=== PATIENT | female | born 1965 | race Caucasian/White ===

== ENCOUNTER 2019-11-05 20:39 | Emergency (ER) | payer OTHER, SELFPAY ==
--- NOTE | ~2019-11-05 | XR_ITS ---
EXAMINATION: XR chest 2V DATE: 11/05/2019 21:45 INDICATION: Shortness of breath TECHNIQUE: PA and lateral views of the chest are obtained. COMPARISON: 11/06/2018 FINDINGS: The lungs are hyperinflated but free of acute opacities. There is no pleural effusion or pn eumothorax. The cardiomediastinal silhouette is normal. There is mild thoracic spondylosis. Surgical clips in the right upper quadrant are likely from prior cholecystectomy. IMPRESSION: 1. Hyperinflation without acute cardiopulmonary abnormality. Reviewed, dictated and finalized at location A. [facility]
[2019-11-05 21:13] VITALS: BP 108/66; PULSE 84; RESP 14; TEMP 36.6; O2SAT 97
--- NOTE | 2019-11-05 21:49 | ED.SOB ---
HPI - SOB/Dyspnea General Chief Complaint: Shortness of Breath/Dyspnea Stated Complaint: light headed, chest pains Time Seen by Provider: 11/05/19 21:00 Source: patient and family Mode of arrival: ambulatory Limitations: no limitations History of Present Illness HPI Narrative: Sheela is a very pleasant 54-year-old female patient. she presents ambulatory to the emergency room with her . She states that she has had cough and shortness of breath for several months. She has history of COPD. She is a heavy smoker. She smokes 1 pack of cigarettes a day. She has been smoking since the age of 8 years. She sees a shipping room supervisor and actually saw him 2 weeks ago. Some changes were made in her medications. She coughs hard at times and that makes her ribs and chest hurt. She has had no fever. There is no history of hypertension, mi, CVA, diabetes mellitus. MD elicited complaint: shortness of breath, cough and anxiety ( Ribs hurt with coughing) Pertinent past history: COPD Onset (ago): month(s) ( several months, worst in the past 3-4 days) Timing: intermittent Severity: moderate Exacerbating factors: other ( smoking) Relieving factors: oxygen, rest and bronchodilators Known history of: COPD Associated symptoms: pain with inspiration and other ( coughing and deep breathing makes her ribs hurt) Treatment prior to arrival: bronchodilator Related Data Home oxygen amount: none Home Medications Medication Instructions Recorded Confirmed albuterol sulfate 2 puff INHALATION Q4-5H PRN 11/05/19 11/05/19 albuterol sulfate 2.5 mg INHALATION Q4-6H PRN 11/05/19 11/05/19 alprazolam 2 mg PO TID PRN 11/05/19 11/05/19 budesonide-formoterol [Symbicort] 1 puff INHALATION DAILY 11/05/19 11/05/19 citalopram 40 mg PO DAILY 11/05/19 11/05/19 cyclobenzaprine 10 mg PO TID PRN 11/05/19 11/05/19 fluticasone propion-salmeterol 1 puff INHALATION DAILY 11/05/19 11/05/19 hydrocodone-acetaminophen 1 tablet PO Q4-6H PRN 11/05/19 11/05/19 mirtazapine 15 mg PO HS 11/05/19 11/05/19 nicotine 1 patch TOPICAL DAILY 11/05/19 11/05/19 umeclidinium [Incruse Ellipta] 1 inh INHALATION DAILY 11/05/19 11/05/19 Allergies Allergy/AdvReac Type Severity Reaction Status Date / Time aspirin AdvReac Unknown Unknown Verified 11/05/19 22:19 Corticosteroids AdvReac Unknown Unknown Verified 11/05/19 22:19 (Glucocorticoids) diphenhydramine AdvReac Unknown Unknown Verified 11/05/19 22:19 meperidine AdvReac Unknown Unknown Verified 11/05/19 22:19 NSAIDS (Non-Steroidal AdvReac Unknown Unknown Verified 11/05/19 22:19 Anti-Inflamma prednisone AdvReac Unknown Unknown Verified 11/05/19 22:19 Sulfonamides AdvReac Intermediate Unknown Uncoded 11/05/19 22:19 Review of Systems Review of Systems: All systems reviewed & are unremarkable except as noted in HPI and below Constitutional: Constitutional: Reports as per HPI, Reports no additional constitutional complaints, Denies chills and Denies fever(s) Eyes: Eyes: Reports as per HPI, Reports no additional eye complaints and Denies change in vision ENT: Denies dysphagia, Denies dizziness, Denies nasal congestion and Denies sore throat Cardiovascular: Cardiovascular: Reports as per HPI, Reports no additional cardiovascular complaints and Denies radiating jaw, neck or arm pain Respiratory: Respiratory: Reports as per HPI, Reports cough and Reports dyspnea Gastrointestinal: Gastrointestinal: Reports as per HPI, Reports no additional gastrointestinal complaints, Denies abdominal pain and Denies nausea Genitourinary: Genitourinary: Reports no additional female genitourinary complaints, Denies hematuria and Denies dysuria Musculoskeletal: Musculoskeletal: Reports no additional musculoskeletal complaints and Denies back pain Integumentary/Breasts: Skin/Breast: Reports system reviewed and no additional complaints, except as docu, Denies erythema and Denies rash Neurologic: Reports system reviewed and no additional complaints, except as
[2019-11-05 21:55] LABS: Basophils Absolute Auto 0.09 K/mm3 (0.00-0.10); Basophils Percent Auto 0.6 % (0.0-1.0); Eosinophils Absolute Auto 1.13 K/mm3 (0.02-0.50); Eosinophils Percent Auto 7.8 % (1.0-6.0); Hematocrit 44.2 % (35.0-49.0); Hemoglobin 14.8 g/dL (12.0-15.0); Immature Granulocyte Absolute 0.41 K/mm3 (0.00-0.00); Immature Granulocyte Percent A 2.8 % (0.0-0.0); Lymphocytes Absolute Auto 2.87 K/mm3 (1.10-4.50); Lymphocytes Percent Auto 19.8 % (18.0-42.0); Mean Corpuscular HGB Conc 33.5 g/dL (32.0-36.0); Mean Corpuscular Hemoglobin 31.1 pg (27.0-31.0); Mean Corpuscular Volume 92.9 fL (78.0-102.0); Monocytes Absolute Auto 1.09 K/mm3 (0.10-0.90); Monocytes Percent Auto 7.5 % (2.0-11.0); Neutrophils Absolute Auto 8.9 K/mm3 (1.7-7.2); Neutrophils Percent Auto 61.5 % (50.0-70.0); Platelet Count Result 350 K/mm3 (150-420); Red Blood Count 4.76 M/mm3 (4.20-5.40); Red Cell Distribution Width 14.6 % (11.6-14.4); White Blood Count 14.5 K/mm3 (4.8-10.8)
[2019-11-05 22:12] LABS: Alanine Aminotransferase 22 U/L (14-59); Albumin Level 3.5 g/dL (3.4-5.0); Alkaline Phosphatase 163 U/L (46-116); Anion Gap 14.1 mmol/L (7-16); Aspartate Amino Transferase 15 U/L (15-37); Bilirubin,Total 0.4 mg/dL (0.00-1.00); Blood Urea Nitrogen 11 mg/dL (7-18); Calcium 9.9 mg/dL (8.5-10.1); Carbon Dioxide 26 mmol/L (21-32); Chloride 102 mmol/L (98-108); Estimated CRCL calculation 46 ml/min; Estimated Glomerular Filt Rate 58; Glucose 91 mg/dL (70-99); Osmolality Calculated 285 mOsm/kg (285-295); Potassium 4.1 mmol/L (3.5-5.1); Sodium 138 mmol/L (136-145); Total Protein 7.5 g/dL (6.4-8.2)
--- NOTE | 2019-11-05 22:19 | PC.NURSE ---
PT STATES MULTIPLE TIMES THAT SHE HAS NO KNOWN DRUG ALLERGIES AND HAS NO ALLERGIC REACTION TO STERIODS OF ANY KIND. ALLERGY LIST CHANGED TO ADVERSE REACTIONS INSTEAD OF ALLERGIES. UNKNOWN WHERE THIS ALLERGY LIST HAS COME FROM. ERP CONFIRMED WITH PATIENT THAT SHE HAS NO ALLERGIES
[2019-11-05] MEDS: methylPREDNISolone SOD SUCC 125 MG VIAL 60 MG IM (22:49)
[2019-11-05] MEDS: LIDOCAINE HCL 1% LOCAL INJ 20 ML VIAL (22:50)
[2019-11-05] MEDS: cefTRIAXone 1 GM VIAL IM (22:50)
[2019-11-05] MEDS: IPRATROPIUM 0.5 MG/ALBUTEROL SULFATE 2.5 MG AMPUL.NEB 3 ML INHALATION (22:50)
[2019-11-05 23:22] VITALS: PULSE 81; RESP 14; O2SAT 100
== END 2019-11-05 23:22 | disposition home or self-care (01) ==
PROVIDERS: Emergency Provider Surgery
DX: J44.1 Chronic obstructive pulmonary disease with (acute) exacerbation (principal); F17.200 Nicotine dependence, unspecified, uncomplicated
CPT/HCPCS: 36415; 71046; 80053; 85025; 87040; 96372; 99283; 99284; J0696; J2930

== ENCOUNTER 2020-05-20 13:35 | Observation (INO) | payer OTHER, SELFPAY ==
--- NOTE | ~2020-05-20 | XR_ITS ---
EXAMINATION: XR chest 2V DATE: 05/20/2020 14:10 INDICATION: Chest pain. TECHNIQUE: Frontal and lateral views of the chest were obtained on 3 radiographs. COMPARISON: Chest 2 views 11/05/2019 FINDINGS: The lungs are hyperexpanded with lucencies, consistent with emphysema. There is mild scarri ng at the lung apices. No pleural effusion or pneumothorax. The heart size is normal. IMPRESSION: 1. Emphysema. 2. Mild scarring at the lung apices. Reviewed, dictated and finalized at location B.
--- NOTE | 2020-05-20 13:46 | ED.CHESTPAIN ---
HPI - Chest Pain General Chief Complaint: Chest Pain Stated Complaint: chest pain/ bruse to the touch/ swollen,timgling Time Seen by Provider: 05/20/20 13:47 Source: patient Mode of arrival: ambulatory Limitations: no limitations History of Present Illness HPI narrative: 55-year-old woman comes in today complaining of 1 week of intermittent chest pain sometimes lasting more than day and intermittent shortness of breath. She also states that she has felt feverish, had nausea and vomiting, and noticed that she has bruising even with minor skin contact. She states that she had some itching on her right lateral leg and after she scratched did notice a large bruise. She denies any sick exposures, cough, rhinorrhea, sore throat, abdominal pain, hematuria or dysuria. Patient states that she has been taking frequent doses of Tylenol for her symptoms. MD complaint: chest pain Pertinent past history: other ( COPD) Onset (ago): week(s) (1) Timing of current episode: episodic Prior episodes: No Onset: during rest Pain location: substernal Pain radiation: none Severity: moderate Quality: tightness Relieving factors: nothing Exacerbating factors: nothing Associated symptoms: nausea, vomiting, diaphoresis, dyspnea and palpitations Treatment prior to arrival: none Related Data Home Medications Medication Instructions Recorded Confirmed albuterol sulfate 2 puff INHALATION Q4-5H PRN 11/05/19 05/20/20 budesonide-formoterol [Symbicort] 1 puff INHALATION DAILY 11/05/19 05/20/20 umeclidinium [Incruse Ellipta] 1 inh INHALATION DAILY 11/05/19 05/20/20 omeprazole 40 mg capsule,delayed 40 mg PO DAILY cap 04/25/20 05/20/20 release Allergies Allergy/AdvReac Type Severity Reaction Status Date / Time meperidine [From Demerol] Allergy Severe Unknown Verified 04/25/20 13:47 Sulfonamides AdvReac Intermediate Unknown Uncoded 11/05/19 22:19 Review of Systems Constitutional: Constitutional: Reports chills, Reports fatigue, Reports fever(s) and Reports weakness Eyes: Eyes: Denies change in vision and Denies photophobia ENT: Denies dysphagia, Denies nasal congestion and Denies sore throat Cardiovascular: Cardiovascular: Reports chest pain and Denies radiating jaw, neck or arm pain Respiratory: Respiratory: Denies cough, Reports dyspnea and Denies wheezing Gastrointestinal: Gastrointestinal: Denies abdominal pain, Reports diarrhea, Reports nausea and Denies vomiting Genitourinary: Genitourinary: Denies hematuria, Denies nocturia and Denies dysuria Musculoskeletal: Musculoskeletal: Denies back pain, Denies arthralgias and Denies joint swelling Integumentary/Breasts: Skin/Breast: Denies pruritus, Denies erythema and Denies rash Neurologic: Denies vertigo, Denies dizziness and Denies syncope Hematologic/Lymphatic: Hematologic/Lymphatic: Denies easy bleeding and Denies easy bruising Allergic/Immunologic: Allergic/Immunologic: Denies lip swelling, Denies throat swelling and Denies tongue swelling PMFSH Social History Social History Smoking packs per day: 2 Smoking cigarettes per day: 40.0 Years smoked: 45 Smoking pack-years: 90.00 Smoking status: Current every day smoker Tobacco type: cigarettes Additional smoking assessment comments: Patient reports she has descreased smoking to 4-5 cigarettes a day. Alcohol intake: never Substance use: current Substance use type: marijuana Other substance usage details: Medical [facility] Gender identity (if verbalized by the patient): Female Sexual Orientation (if Verbalized by the Patient): Straight or Heterosexual Spiritual care concerns: No Course Vital Signs Vital signs: Vital Signs Temperature 36.8 C 05/20/20 13:48 Pulse Rate 78 05/20/20 13:48 Respiratory Rate 20 05/20/20 13:48 Blood Pressure 153/89 H 05/20/20 13:48 Pulse Oximetry 98 05/20/20 13:48 Temperature 36.7 C 05/21/20 00:00 Pul
[2020-05-20 13:48] VITALS: BP 153/89; PULSE 78; RESP 20; TEMP 36.8; O2SAT 98
--- NOTE | 2020-05-20 13:48 | ECG_ITS ---
Measurements Intervals [place] Rate: 86 P: 76 [place]: 121 QRS: 72 QRSD: 85 T: 85 QT: 349 QTc: 420 Interpretive Statements SINUS RHYTHM BORDERLINE T WAVE ABNORMALITY- ANT/HIGH LAT LEADS BASELINE ARTIFACT- I, II, III, AVR, AVL, AVF, V6 BORDERLINE ECG Electronically Signed On 05-20-2020 14:03:11 CDT by Eleazar Rubio D.O.
[2020-05-20 14:28] LABS: Basophils Absolute Auto 0.06 K/mm3 (0.00-0.10); Basophils Percent Auto 0.7 % (0.0-1.0); Eosinophils Absolute Auto 0.48 K/mm3 (0.02-0.50); Eosinophils Percent Auto 5.8 % (1.0-6.0); Hematocrit 41.7 % (35.0-49.0); Hemoglobin 13.8 g/dL (12.0-15.0); Immature Granulocyte Absolute 0.04 K/mm3 (0.00-0.00); Immature Granulocyte Percent A 0.5 % (0.0-0.0); Lymphocytes Absolute Auto 2.35 K/mm3 (1.10-4.50); Lymphocytes Percent Auto 28.3 % (18.0-42.0); Mean Corpuscular HGB Conc 33.1 g/dL (32.0-36.0); Mean Corpuscular Hemoglobin 30.3 pg (27.0-31.0); Mean Corpuscular Volume 91.4 fL (78.0-102.0); Mean Platelet Volume 9.9 fl (9.2-11.8); Monocytes Absolute Auto 0.66 K/mm3 (0.10-0.90); Monocytes Percent Auto 7.9 % (2.0-11.0); Neutrophils Absolute Auto 4.7 K/mm3 (1.7-7.2); Neutrophils Percent Auto 56.8 % (50.0-70.0); Platelet Count Result 350 K/mm3 (150-420); Red Blood Count 4.56 M/mm3 (4.20-5.40); Red Cell Distribution Width 15.9 % (11.6-14.4); White Blood Count 8.3 K/mm3 (4.8-10.8)
[2020-05-20 14:42] LABS: Partial Thromboplastin Time 25.4 SEC (22.3-31.6); Prothrombin Time 10.5 Seconds (9.64-11.0)
[2020-05-20 14:45] VITALS: BP 147/76; PULSE 84; RESP 20; O2SAT 99
[2020-05-20 14:46] LABS: Alanine Aminotransferase 22 U/L (14-59); Albumin Level 3.5 g/dL (3.4-5.0); Alkaline Phosphatase 167 U/L (46-116); Anion Gap 11 mmol/L (8-16); Aspartate Amino Transferase 19 U/L (15-37); Bilirubin,Total 0.5 mg/dL (0.00-1.00); Blood Urea Nitrogen 12 mg/dL (7-18); CRP 0.5 mg/dL (0.0-0.9); Calcium 9.7 mg/dL (8.5-10.1); Carbon Dioxide 25 mmol/L (21-32); Chloride 104 mmol/L (98-108); Creatine Kinase 44 U/L (26-192); Estimated CRCL calculation 40 ml/min; Estimated Glomerular Filt Rate 55; Glucose 114 mg/dL (70-99); Osmolality Calculated 290 mOsm/kg (285-295); Potassium 2.9 mmol/L (3.5-5.1); Sodium 140 mmol/L (136-145); Total Protein 7.1 g/dL (6.4-8.2)
[2020-05-20 14:49] LABS: Lactic Acid Reflex 1.5 mmol/L (0.4-2.0)
[2020-05-20 15:06] LABS: Troponin I < 0.02 ng/mL (0.00-0.056)
[2020-05-20 15:28] LABS: Acetaminophen 0 ug/mL (10-30)
[2020-05-20 16:00] VITALS: BP 137/72; PULSE 77; RESP 18; O2SAT 95
[2020-05-20] MEDS: KCL 20 MEQ/SW 100 ML 100 ML 50 MEQ IVPB (16:18)
[2020-05-20] MEDS: SODIUM CHLORIDE 0.9% IV 1,000 ML 100 ML IV CONT (16:28)
[2020-05-20 16:50] VITALS: BP 139/68; PULSE 83; RESP 18; TEMP 37; O2SAT 96; BMI 22.1
--- NOTE | 2020-05-20 17:37 | ADMGEN ---
This patient, Sheela Wang, was admitted to 2nd Floor Room 204-2. Patient/family oriented to hospital policies and general routines including ID bracelet, bed and alarms, visiting hours, pain management, procedures, bathroom and other care routines, personal items, smoking policy, room service/diet, and visiting hours. Valuables list has been completed. Information on how to activate the Rapid Response Team has been discussed. Patient/Family are encouraged to report perceived risks to care and to ask questions if they do not understand what they are told or what they should do.
[2020-05-20] MEDS: PANTOPRAZOLE 40 MG TABLET PO (17:57)
--- NOTE | 2020-05-20 20:00 | PC.NURSE ---
Patient watching tv. No distress noted. IV fluids infusing as ordered. Call light in reach.
[2020-05-20 20:34] LABS: Anion Gap 7 mmol/L (8-16); Blood Urea Nitrogen 14 mg/dL (7-18); Calcium 9.3 mg/dL (8.5-10.1); Carbon Dioxide 28 mmol/L (21-32); Chloride 105 mmol/L (98-108); Estimated CRCL calculation 41 ml/min; Estimated Glomerular Filt Rate 57; Glucose 100 mg/dL (70-99); Magnesium 1.7 mg/dL (1.8-2.4); Osmolality Calculated 290 mOsm/kg (285-295); Potassium 3.1 mmol/L (3.5-5.1); Sodium 140 mmol/L (136-145)
[2020-05-20 20:37] LABS: Troponin I < 0.02 ng/mL (0.00-0.056)
[2020-05-20 20:40] LABS: Add Urine Microscopic? YES; Appearance Urine Clear (Clear); Bilirubin Urine Negative (Negative); Blood Urine Negative (Negative); Color Urine Yellow (Yellow); Glucose Urine UA Negative (Negative); Ketones Urine 1+ (Negative); Leukocyte Esterase Ur Negative LEU/UL (Negative); Nitrate Urine Negative (Negative); Protein Urine Trace (Negative); pH Urine 7.5 (5.0-8.0)
[2020-05-20 20:44] LABS: RBC Urine 0-2 /hpf (0-2); Squamous Epithelial Cell Urine Few /hpf (Few); WBC Urine 0-3 /hpf (0-3)
[2020-05-20 20:45] LABS: Amorphous Sediment Urine Moderate; Bacteria Urine Trace /hpf
--- NOTE | 2020-05-20 22:15 | PC.NURSE ---
Patient ambulated to/from bathroom with steady gait. No distress noted. Call light in reach.
[2020-05-21] VITALS: BP 146/62; PULSE 76; RESP 20; TEMP 36.7; O2SAT 96
--- NOTE | 2020-05-21 | PC.NURSE ---
Patient awakened easily for VS. No distress noted. Call light in reach.
[2020-05-21] MEDS: POTASSIUM CHLORIDE 20 MEQ PACKET (FOR LIQUID) 40 MEQ PO (01:45)
[2020-05-21] MEDS: SODIUM CHLORIDE 0.9% IV 1,000 ML 100 ML IV CONT ×2 (02:04→17:19)
--- NOTE | 2020-05-21 02:10 | PC.NURSE ---
Patient drank potassium as ordered. Patient ambulated to/from bathroom with steady gait. Patient denies pain/complaints/needs @ this time. No distress noted. Call light in reach.
[2020-05-21 02:52] LABS: Troponin I < 0.02 ng/mL (0.00-0.056)
[2020-05-21 05:32] LABS: Basophils Absolute Auto 0.05 K/mm3 (0.00-0.10); Basophils Percent Auto 0.6 % (0.0-1.0); Eosinophils Absolute Auto 0.67 K/mm3 (0.02-0.50); Eosinophils Percent Auto 7.8 % (1.0-6.0); Hematocrit 35.6 % (35.0-49.0); Hemoglobin 11.8 g/dL (12.0-15.0); Immature Granulocyte Absolute 0.06 K/mm3 (0.00-0.00); Immature Granulocyte Percent A 0.7 % (0.0-0.0); Lymphocytes Absolute Auto 1.95 K/mm3 (1.10-4.50); Lymphocytes Percent Auto 22.7 % (18.0-42.0); Mean Corpuscular HGB Conc 33.1 g/dL (32.0-36.0); Mean Corpuscular Hemoglobin 30.5 pg (27.0-31.0); Monocytes Absolute Auto 0.67 K/mm3 (0.10-0.90); Monocytes Percent Auto 7.8 % (2.0-11.0); Neutrophils Absolute Auto 5.2 K/mm3 (1.7-7.2); Neutrophils Percent Auto 60.4 % (50.0-70.0); Platelet Count Result 307 K/mm3 (150-420); Red Blood Count 3.87 M/mm3 (4.20-5.40); Red Cell Distribution Width 15.9 % (11.6-14.4); White Blood Count 8.6 K/mm3 (4.8-10.8)
[2020-05-21 05:56] LABS: Alanine Aminotransferase 16 U/L (14-59); Albumin Level 2.7 g/dL (3.4-5.0); Alkaline Phosphatase 130 U/L (46-116); Anion Gap 7 mmol/L (8-16); Aspartate Amino Transferase 15 U/L (15-37); Bilirubin,Total 0.4 mg/dL (0.00-1.00); Blood Urea Nitrogen 8 mg/dL (7-18); Calcium 8.5 mg/dL (8.5-10.1); Carbon Dioxide 25 mmol/L (21-32); Chloride 108 mmol/L (98-108); Estimated CRCL calculation 53 ml/min; Estimated Glomerular Filt Rate > 60; Glucose 105 mg/dL (70-99); Osmolality Calculated 288 mOsm/kg (285-295); Sodium 140 mmol/L (136-145); Total Protein 5.7 g/dL (6.4-8.2)
[2020-05-21 06:01] LABS: Troponin I < 0.02 ng/mL (0.00-0.056)
[2020-05-21 08:00] VITALS: BP 139/50; PULSE 79; RESP 16; TEMP 36.5; O2SAT 97
--- NOTE | 2020-05-21 08:03 | PM.IMHP ---
H&P: HPI History of Present Illness Date/Time: 05/21/20 08:03 <Tabatha Campos E MARKETING SPECIALIST - Last Filed: 05/21/20 10:35> Chief complaint: chest pain/ bruse to the touch/ swollen,timgling <Tabatha Campos NP - Last Filed: 05/21/20 10:35> Narrative: Sheela Wang is a 55 year old female That was admitted to the ED yesterday complaining of 1 week of intermittent chest pain sometimes lasting more than day and intermittent shortness of breath. She also stated that she has felt feverish, had nausea and vomiting, and noticed that she has bruising even with minor skin contact. She states that she had some itching on her right lateral leg and after she scratched did notice a large bruise. She denies any sick exposures, cough, rhinorrhea, sore throat, abdominal pain, hematuria or dysuria. Patient states that she has been taking frequent doses of Tylenol for her symptoms. She was admitted yesterday for substernal and near epigastric chest pain, overnight monitoring, and serial troponin levels. Early this morning I met with the patient and she was completing her breakfast. She is eating 100% of her meal. She denied any nausea or vomiting or diarrhea today. She stated that she had a normal bowel movement yesterday and denied any concerns. She is not having any diaphoresis or dyspnea or palpitations at this time. She did show me some bruising to her right lateral thigh. She stated this occurred when she was scratching it at home. No other bruises noted, other than IV sites. She informed me that she has quit smoking and does not smoke at home. She used to smoke 2 packs per day according to Sheela. She has informed me that she is now down to just ProAir inhaler p.r.n. and albuterol nebulizers p.r.n. at home as well as her omeprazole and Incruse Ellipta daily. She does continue to see her beveling machine operator at [facility] in [place], [place]. Her next visit with Dr. Mesa is May 28. She did inform me of a 2019 pulmonary biopsy that was completed that did not show any cancer per her recollection. She has had serial troponins, with all 4 being normal. Her blood cultures remain pending. Her UA did not show evidence of a UTI , so no urine culture is pending. She reports that she had a COVID test done on Tuesday, May 16 at [facility]. She had the COVID test done because she had to go have a 6 minutes walk completed for her beveling machine operator and the hospital would not let her complete that testing without having a negative COVID test results 1st. Her COVID test result was negative and she denies being around any COVID positive patient has since her testing. She stated that the reason she came in yesterday was also a bad headache as well as her racing rapid heartbeat. She said yesterday she had sharp pains in her left chest as well as pains that went to her shoulder and down her arm. These were her symptoms yesterday when she came in per her report. Today this morning she denied having any of the symptoms. There were no fevers overnight her white count today is 8.6, hemoglobin 11.8, hematocrit 35.6, INR 1.0, sodium 140, potassium 4.0, creatinine 0.77, glucose 105. Her blood pressures 139/50 and upon review of the cardiac telemetry monitoring her heart rates running in the 70s and 80s with a normal sinus rhythm, no ST elevation or concern. About an hour later I was summoned by nursing staff that the patient was having some chest discomfort. Her chest pain today is intermittent. She does admit to the pain returning this morning, when she was at rest and we had her conversation for 30 minutes she denied pain and heart palpitations throughout my exam and discussion. Then about an hour later she said she was speaking with her friend over the phone, she became anxious agitated and started having chest discomfort. She pointed again to the epigastric substernal area. Said that her chest is feeling tight. She is refusing IV narc
[2020-05-21 08:40] LABS: Magnesium 1.6 mg/dL (1.8-2.4); Phosphorus 1.7 mg/dL (2.6-4.7)
[2020-05-21] MEDS: BUDESONIDE/FORMOTEROL (*SP) 160-4.5 MCG 6 GM INH 1 PUFF INHALATION (08:46)
[2020-05-21] MEDS: PANTOPRAZOLE 40 MG TABLET PO ×2 (08:46→17:14)
--- NOTE | 2020-05-21 09:25 | PC.NURSE ---
pt called staff to her room. reports that she no longer feels safe here does not want to go home because she does not feel ready to discharge but she does not want to stay here either. she wants to be transferred to [place]. MEGHA Mays aware. New orders received.
[2020-05-21] MEDS: LIDOCAINE 5% PATCH 2 PATCH TRANSDERM (09:38)
[2020-05-21] MEDS: MAGNESIUM SULF 4 GM/WATER100ML 4 GM/100 ML BAG IVPB (09:39)
--- NOTE | 2020-05-21 09:58 | PC.NURSE ---
lidoderm patches placed per order, mag ivpb hung, norce given. pt tearful and stating she feels like shit reports that it hit her all of a sudden . pt presenting with random, somatic complaints for example diffuse neck pain, high blood pressure (BP WNL), bruising, pain down leg, etc. stated to nurse that she is not going home today, when she was told that she may still be discharged this afternoon after her ivs are complete, she became irritated saying that she cant go home because she feels awful.
[2020-05-21 10:20] LABS: CRP 0.8 mg/dL (0.0-0.9)
[2020-05-21 10:55] LABS: Erythrocyte Sedimentation Rate 8 mm/hr (0-20)
[2020-05-21] MEDS: POTASSIUM PHOS,M-BASIC-D-BASIC 20 MMOL in SODIUM CHLORIDE 0.9% IV 250 ML 62.5 MMOL IVPB (11:07)
[2020-05-21] MEDS: NICOTINE (*PBKC) 14 MG PATCH 1 PATCH TRANSDERM (11:07)
[2020-05-21 12:39] LABS: Creatine Kinase 52 U/L (26-192)
--- NOTE | 2020-05-21 12:40 | ECHO_ITS ---
Patient Info Name: Sheela Wang Age: 55 years : 1965 Gender: Female Ht: 61 in Wt: 117 lbs BSA: 1.52 m2 HR: 79 bpm BP: 139 / 50 mmHg Heart Rhythm: Sinus Rhythm Technical Quality: Fair Exam Date: 05/21/2020 3:17 PM Exam Location: [facility] Patient Status: Outpatient Admit Date: 05/20/2020 Staff Ordering Physician: Tabatha Campos NP Filament W[employer] Parts Fabricator: Luci Meng RDCS Attending Provider: All Canseco MD Referring Physician: Andres LANGFORD; Exam Type: CA echo dop color flow w con Study Info Indications R00.2 - Palpitations R07.9 - Chest pain, unspecified Complete two-dimensional, color flow and Doppler transthoracic echocardiogram is performed. Strain analysis performed. History/Risk Factors Hypertension: Yes COPD: On Meds Tobacco Use: Current - Every Day If Any Current, Tobacco Type: Cigarettes If Current - Every Day \T\ Cigarettes, Amount: Heavy Tobacco Use (>=10/day) Family History: Coronary Artery Disease Summary 1. Complete two-dimensional, color flow and Doppler transthoracic echocardiogram is performed. 2. Left ventricular chamber dimension is normal. 3. Left ventricular systolic function is normal, estimated at 60-65%. 4. The left ventricular diastolic function is grade I diastolic dysfunction. 5. E/e' 7 is not elevated. 6. Global longitudinal strain is normal at -18.7%. 7. There is trace mitral valve regurgitation. Recommendations * Smoking cessation counseling is recommended for this patient. Left Ventricle E/e' 7 is not elevated. Global longitudinal strain is normal at -18.7%. Left ventricular chamber dimension is normal. Left ventricular systolic function is normal, estimated at 60-65%. The left ventricular diastolic function is grade I diastolic dysfunction. Right Ventricle Right ventricular chamber dimension is normal. Right ventricular systolic function is normal. Left Atria Left atrial chamber dimension is normal. Right Atria Right atrial chamber dimension is normal. Aortic Valve Cannot determine number of aortic valve leaflets. The aortic valve is not well visualized. There is no aortic valve stenosis. There is no aortic valve regurgitation. Pulmonic Valve There is no pulmonic regurgitation. Mitral Valve There is no mitral valve stenosis. There is trace mitral valve regurgitation. Tricuspid Valve There is no tricuspid valve regurgitation. Pericardium/Pleural There is no pericardial effusion. Inferior Vena Cava Normal inferior vena cava with >50% collapse upon inspiration consistent with normal right atrial pressure, 5 mmHg. Aorta The aortic root size at the sinus of Valsalva is normal. Left Ventricular Outflow Tract Name Value Normal LVOT 2D LVOT Diameter 1.91 cm LVOT Doppler LVOT Peak Velocity 103.45 cm/s LVOT Peak Gradient 4 mmHg LVOT Mean Gradient 2 mmHg LVOT VTI 21.83 cm LVOT VTI/AV VTI Ratio 0.97 LVOT Stroke Volume
[2020-05-21 12:50] LABS: Troponin I < 0.02 ng/mL (0.00-0.056)
--- NOTE | 2020-05-21 13:23 | ECG_ITS ---
Measurements Intervals [place] Rate: 84 P: 61 SC: 123 QRS: 55 QRSD: 73 T: 72 QT: 359 QTc: 425 Interpretive Statements SINUS RHYTHM WITH SINUS ARRHYTHMIA BORDERLINE T WAVE ABNORMALITY- ANTERIOR LEADS BORDERLINE ECG Electronically Signed On 05-21-2020 16:08:27 CDT by Eleazar Rubio D.O.
[2020-05-21 16:00] VITALS: BP 143/76; PULSE 83; RESP 16; TEMP 36.7; O2SAT 97
--- NOTE | 2020-05-21 18:40 | PC.NURSE ---
pt states pain is not in her chest but is a general all over pain that she is used to , pt has orders from another doctor to see therapy for neck pain and is glad she got to meet with meaghan while here
--- NOTE | 2020-05-21 20:00 | PM.DS ---
DS: Admitting Diagnosis Admitting Diagnosis Admitting Diagnosis: chest pain/ bruse to the touch/ swollen,timgling DS: Discharge Diagnosis Discharge Diagnosis (1) Hypophosphatemia: Code(s): E83.39 - Other disorders of phosphorus metabolism Status: Acute Assessment and Plan: her phosphorus level is 1.7 today replenished with 20 millimoles K-Phos IV continuous cardiac telemetry monitoring with no ectopy noted no chest pain or chest palpitations during my initial examination patient able to reposition herself in bed and get to the commode without any muscle cramping or spasm complaints or noted ate 100% of her breakfast this morning, no nausea vomiting or diarrhea encouraged patient to get better oral hydration throughout the day and improve her nutritional intake as well. (2) Chest pain: Qualifiers: Chest pain type: unspecified Qualified Code(s): R07.9 - Chest pain, unspecified Code(s): R07.9 - Chest pain, unspecified Status: Acute Assessment and Plan: intermittent chest pain and pressure located in the epigastric substernal area - RESOLVED. troponin levels x4 were normal, repeating a full cardiac panel at noon - NORMAL, CRP was 0.5 and 0.8. EKG completed at admission showed sinus rhythm with no concerning ST changes - ordered repeat EKG replenished electrolytes as needed, including potassium magnesium and phosphorus as noted in the plan recent negative COVID test done on May 16, no fevers, no difficulty breathing, no shortness of breath or dyspnea, WBC 8.3 and 8.6, UA clear, blood cultures are pending, ordered ESR patient denies having an echo, echo ordered and completed stat ECHO REPORT: Left ventricular chamber dimension is normal.Left ventricular systolic function is normal, estimated at 60-65%. The left ventricular diastolic function is grade I diastolic dysfunction. Right ventricular chamber dimension is normal. Right ventricular systolic function is normal. There is no aortic valve stenosis.There is no aortic valve regurgitation. There is no pulmonic regurgitation. There is no mitral valve stenosis.There is trace mitral valve regurgitation. There is no tricuspid valve regurgitation. There is no pericardial effusion. Normal inferior vena cava with >50% collapse upon inspiration consistent with normal right atrial pressure, 5 mmHg. The aortic root size at the sinus of Valsalva is normal. patient stated she just had a 6 minutes walk completed within the last 2 weeks at another hospital, and stated that there was no concerns or requirement of oxygen based on those results chest x-ray only showed emphysema, chronic Advised and instructed patient that she needs to see a natural gas plant supervisor within 1-2 weeks after her discharge. Patient was also advised by her PCP Dr. Snow to follow-up with a natural gas plant supervisor, but the patient had not yet done that. She wants to follow-up with the [facility] natural gas plant supervisor Dr. Mosqueda because her son and also see him. Patient herself wants to schedule that initial natural gas plant supervisor visit because she wants to have it the same day as her and sons appointment. (3) Acute hypokalemia: Code(s): E87.6 - Hypokalemia Status: Acute Assessment and Plan: Potassium level was 2.9 at her admission replenished potassium now 4.0 per this morning labs continuous cardiac telemetry monitoring with no ectopy noted no chest pain or chest palpitations during my initial examination patient able to reposition herself in bed and get to the commode without any muscle cramping or spasm complaints or noted ate 100% of her breakfast this morning, no nausea, vomiting or diarrhea encouraged patient to get better oral hydration throughout the day and improve her nutritional intake as well. (4) Hypomagnesemia: Code(s): E83.42 - Hypomagnesemia Status: Acute Assessment and Plan: Magnesium level was 1.6 to
== END 2020-05-21 19:19 | disposition home or self-care (01) ==
LOC: CHSED 16:14 → CHS2ND 16:15
PROVIDERS: Nurse Practitioner; Admitting Provider Emergency Medicine; Emergency Provider Emergency Medicine; PCP Family Medicine; Visit Provider Emergency Medicine
DX: R07.9 Chest pain, unspecified (principal); E87.6 Hypokalemia; E83.39 Other disorders of phosphorus metabolism; E83.42 Hypomagnesemia; J44.9 Chronic obstructive pulmonary disease, unspecified; R06.00 Dyspnea, unspecified; R11.2 Nausea with vomiting, unspecified; R91.1 Solitary pulmonary nodule; F41.9 Anxiety disorder, unspecified; F17.210 Nicotine dependence, cigarettes, uncomplicated
CPT/HCPCS: 36415; 71046; 80048; 80053; 80307; 81001; 82550; 82553; 83605; 83735; 84100; 84484; 85025; 85610; 85652; 85730; 86140; 87040; 93005; 93306; 96361; 96365; 96375; 97161; 99284; 99285; A9270; G0378; G0379; J3475; J3480; J7030; J7050

== ENCOUNTER 2020-05-28 13:01 | Outpatient (CLI) | payer OTHER, SELFPAY ==
[2020-05-28 14:13] LABS: Anion Gap 9 mmol/L (8-16); Blood Urea Nitrogen 12 mg/dL (7-18); Calcium 10.7 mg/dL (8.5-10.1); Carbon Dioxide 25 mmol/L (21-32); Chloride 104 mmol/L (98-108); Estimated Glomerular Filt Rate 52; Glucose 130 mg/dL (70-99); Magnesium 2.3 mg/dL (1.8-2.4); Osmolality Calculated 287 mOsm/kg (285-295); Phosphorus 2.3 mg/dL (2.6-4.7); Potassium 4.5 mmol/L (3.5-5.1); Sodium 138 mmol/L (136-145)
[2020-05-28 14:33] LABS: Thyroid Stimulating Hormone Reflex 1.74 u/IU/mL (0.36-3.74)
[2020-05-28 14:35] LABS: RFT Charge Test YES; Rheumatoid Factor Screen Positive (Negative)
[2020-06-02 10:41] LABS: ANCA Screen Negative (Negative)
== END 2020-05-28 13:02 | disposition home or self-care (01) ==
LOC: CHSLAB 13:08
PROVIDERS: PCP Family Medicine; Visit Provider Nurse Practitioner
DX: E83.39 Other disorders of phosphorus metabolism (principal); T14.8XXA Other injury of unspecified body region, initial encounter; R20.8 Other disturbances of skin sensation; E83.42 Hypomagnesemia; R07.9 Chest pain, unspecified; E87.6 Hypokalemia
CPT/HCPCS: 36415; 80048; 83735; 84100; 84443; 86021; 86038; 86039; 86430; 86431

== ENCOUNTER 2025-01-14 07:49 | Outpatient (CLI) | payer OTHER, SELFPAY ==
--- NOTE | 2025-01-14 07:57 | EST_ITS ---
Patient Info Name: Sheela Wang Age: 60 years : 1965 Gender: Female Ht: 61 in Wt: 104 lbs BSA: 1.42 m2 HR: 92 bpm BP: 131 / 91 mmHg Heart Rhythm: Sinus Rhythm Technical Quality: Good Exam Date: 01/14/2025 8:58 AM Exam Location: Echo Lab Patient Status: Outpatient Admit Date: 01/14/2025 Staff Ordering Physician: Aye, Kyara Wilhelm APRN Attending Provider: Aye, Kyara Wilhelm APRN Exam Type: CA stress steven w NM Study Info A regadenoson stress test was performed. History/Risk Factors Hypertension: Yes COPD: On Meds Tobacco Use: Current - Every Day If Any Current, Tobacco Type: Cigarettes If Current - Every Day \T\ Cigarettes, Amount: Heavy Tobacco Use (>=10/day) Family History: Coronary Artery Disease Summary 1. 1. Negative lexiscan stress test for ischemic ST changes by ECG criteria. 2. 2. Stable hemodynamics throughout the test. 3. 3. Nuclear scan to follow and will be reported separately. Please correlate with it. Protocol: LEXISCAN Stress ECG Details Stage: REST Duration (min): 3 min : 27 sec HR (bpm): 92 SBP (mmHg): 131 DBP (mmHg): 91 Stage: REST Duration (min): 8 min : 2 sec HR (bpm): 89 SBP (mmHg): 131 DBP (mmHg): 91 Stage: STAGE 1 Duration (min): 0 min : 34 sec HR (bpm): 89 SBP (mmHg): 131 DBP (mmHg): 91 Stage: RECOVERY Duration (min): 0 min : 25 sec HR (bpm): 108 SBP (mmHg): 131 DBP (mmHg): 91 Stage: RECOVERY Duration (min): 1 min : 25 sec HR (bpm): 112 SBP (mmHg): 131 DBP (mmHg): 91 Stage: RECOVERY Duration (min): 2 min : 25 sec HR (bpm): 109 SBP (mmHg): 170 DBP (mmHg): 75 Stage: RECOVERY Duration (min): 3 min : 25 sec HR (bpm): 108 SBP (mmHg): 156 DBP (mmHg): 74 Stage: RECOVERY Duration (min): 4 min : 25 sec HR (bpm): 105 SBP (mmHg): 163 DBP (mmHg): 75 Stage: RECOVERY Duration (min): 5 min : 25 sec HR (bpm): 107 SBP (mmHg): 162 DBP (mmHg): 70 Stage: RECOVERY Duration (min): 6 min : 25 sec HR (bpm): 105 SBP (mmHg): 170 DBP (mmHg): 71 Stage: RECOVERY Duration (min): 7 min : 25 sec HR (bpm): 105 SBP (mmHg): 168 DBP (mmHg): 74 Stage: RECOVERY Duration (min): 8 min : 22 sec HR (bpm): 106 SBP (mmHg): 157 DBP (mmHg): 77 Rest HR: 89 bpm Peak HR: 112 bpm Rest Sys BP: 131 mmHg Peak Sys BP: 170 mmHg Max Pred HR: 159 bpm % Max Pred HR: 70 % Target HR: 135 bpm Max RPP: 19,040 bpm*mmHg BP Response: Normal blood pressure response Termination Reason: Completed Protocol Total Time: 0 min : 34 sec Rest Mendoza BP: 91 mmHg Peak Mendoza BP: 75 mmHg Total Dose: 0.4 mg Resting ECG Sinus rhythm with short MI interval and nonspecific T-wave abnormality. Stress ECG No abnormal ST/T wave changes. Arrhythmias No arrhythmias were observed during the examination. Report Signatures
--- OUTSIDE RECORDS SUMMARY | 2025-01-14 08:10 | XMS_ITS | Data Portability ---
Author Organization [facility], [address] [facility] ([place]) Address [address] 4th [place] [address] Care Team Providers Care Spanish Medical Interpreter Name Role Phone NELSON MACDONALD Primary Care Provider [facility] Referring Provider [phone] Assessment Encounter Date Assessment Date Assessment LastModified by Organization Details LastModified Time 05/01/2024 05/01/2024 Sheela is a 59-year-old female with history significant for rheumatoid arthritis, tobacco use, underlying COPD, osteoporosis presents to the office today for follow-up of 1. Primary biliary cholangitis. She was advised to continue ursodiol. She was given refills for the medication. Lab work will be repeated 2. Dysphagia. Will proceed with EGD to further evaluate the symptoms of dysphagia. Based on the findings we will dilate her esophagus. She was advised to avoid NSAIDs. 3. Colon cancer screening. Last colonoscopy performed in 2020 in [place]. Follow-up in 3 to 6 months. [email or web address] Not available 05/05/2024 14:21:15 07/19/2024 07/19/2024 IMPRESSION: 1. Seropositive, currently active. 2. Fibromyalgia syndrome. 3. Osteoarthritis. 4. Osteoporosis. 5. Mechanical lower back pain. PLAN: 1. Initiate Plaquenil 200 mg orally daily low dose therapy. The indications, risks, benefits and potential side effects of this medication are discussed with the patient today in detail. 2. Plaquenil screening eye exams once yearly. 3. DMARD labs in 1 month, then again in 8 weeks for monitoring purposes. 4. Analgesics per Pain Management. 5. Continue Reclast therapy to complete a total of 5 yearly doses. 6. Repeat bone densitometry in 2 years. 7. Fall precautions reviewed with the patient today in detail. 8. Followup visit in 4 months. koki Not available 07/22/2024 13:42:15 08/09/2024 08/09/2024 Patient is a ple asant 59-year-old female with history significant for rheumatoid arthritis, underlying anxiety disorder, tobacco use, presents to the office today for a follow-up 1. Primary biliary cholangitis. Patient currently is on ursodiol 300 mg twice daily. Her LFTs were back to normal in April 2024. I will repeat her LFTs to monitor her course. Ultrasound of the liver performed in April 2024 was negative for any acute abnormality in the liver. 2. History of gastric erosions and gastritis. Patient will be restarted back on omeprazole 40 mg once a day for 6 weeks. She was strongly advised to stop smoking. She was advised to monitor her diet 3. Colon cancer screening up-to-date. Follow-up in 6 months. [email or web address] Not available 08/09/2024 13:35:11 12/19/2024 12/19/2024 Assessment and p ino Resolved hyperparathyroidism. Vitamin D deficiency Osteoporosis Presented to the hospital with hypercalcemia related to overt intake. She has secondary hyperparathyroidism most likely related to vitamin D deficiency Calcium levels as well as ergocalciferol level normalized with the intake of ergocalciferol 50,000 units every other week. Her vitamin D levels were above normal on ergocalciferol 50,000 units weekly. Eventually and after several attempts we were able to infuse Reclast We were not able to do it as before clinic due to her insurance Eventually in November 2023 this was done at [facility] in [place]. After the infusion we continued ergocalciferol at 50,000 units every other week September 2024 25 vitamin D 25.1. Supply Teacher suggested switching her ergocalciferol to cholecalciferol and to increase the amount from 50,000 units every other week to 50,000 units weekly. Patient contacted us and we told her to continue to take ergocalciferol 50,000 units every other week as when she was on ergocalciferol 50,000 units weekly her vitamin D levels were above normal. November 2024 calcium 8.8, albumin 3.9, alkaline phosphatase 193, creatinine 0.76. No ergocalciferol level was done. Patient will do ergocalciferol level today I do see another order for 25 vitamin D level placed by rheumatology. Osteoporosis Also she has osteoporosis based on June 2021 bone density evaluation done by Dr. Mendez with the following findings T score: AP spine: -5.0, femoral neck: -3.6, total hip: -3.5, distal one third radius: -3.1 Medical intervention for osteoporosis is indicated. It took forever to start Reclast. Eventually she received her first dose November 2023 at [facility] in [place] We discussed importance to quit smoking. We spent 4 minutes discussing smoke cessation. If her vitamin D levels are at goal we will go on and arrange for her to have her second Reclast infusion I am trying to get it done at [facility] but was already told due to her insurance she cannot have it done. Based on this we will give her second infusion of Reclast at [facility]. The reason we have used Reclast is she has history of GERD, colitis and cholangitis and so we do not want to go with oral bisphosphonates. Please note that patient for some reason had another bone density done at [facility] in July 2024. I have this does not affect repeating her bone density has been for clinic which we were planning to do in October 2025. I personally spent a total of 40 minutes on the patient on this date of service including both tclb-tf-gfdh and ous-nyue-bm-face time excluding any separately reportable services. f/u to be arrange later Not available 12/19/2024 18:07:16 01/03/2025 01/03/2025 IMPRESSION: 1. Fever or unknown origin, need to rule out underlying lymphoma with her history of night sweats. 2. Seropositive RA, currently active. 3. Osteoarthritis. 4. Tobacco use. I discussed at length with the patient today she simply needs to stop smoking. I have discussed with her the impacts of smoking in terms of increasing her risk of cancer. It also increases her risk of recurrent infections by inhibiting clearance of secretions properly by the airways and inflaming the airways, making them much narrower and less likely to properly drain. We also discussed the impact of tobacco use on control of RA, essentially making her rheumatoid arthritis more resistant to treatment. 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 I discussed this with her today in detail. She voices understanding and will try to cut back on her cigarette use. PLAN: 1. CT of the chest, abdomen and pelvis with and without contrast to rule out underlying malignancy or perhaps an abscess or infection that may explain her recurrent fevers. 2. Labs today, including a Lyme titer, quantitative immunoglobulin panel, QuantiFERON-TB Gold assay, a swell as CBC, CMP, acute phase reactants, serum protein electrophoresis and ASO titer, as well as LDH level. 3. Prednisone 20 mg daily for 7 days, then 15 mg daily for 7 days, 10 mg daily for 2 weeks, finally 5 mg orally daily for 2 weeks, then off. 4. We will hold off on starting Enbrel at this point until the above workup is available. 5. Counseled the patient again today at length about the importance of smoking cessation. 6. Followup visit in 3 months, but I will have further recommendations once the results of the above workup are available. I personally spent a total of 40 minutes on the patient on this date of service including both eojg-lk-lvcr and hid-frmb-ub-face time excluding any separately reportable services. koki Not available 01/03/2025 14:37:52 Plan of Treatment Reminders Order Date Submit Date Provider Last Modified By Organization Details Last Modified Time Details Appointments Estab mir [email or web address] 20.ES T 2024 11:20A M Dr. Gomez Elmore Not available Not available Not available Estab mir Cam nt 15.ES T 2024 02:00P M Dr. Bishnu Morrow Not available Not available Not available Lab vitam in D panel , serum or plasm a 2024 025 [facility], [address] [place] [address], [id number], 12/26/2024 15:43:03 CBC 2023 024 [facility], [address], [place], [address], 05/11/2024 09:11:23 CMP, serum or plasm a 2023 [facility], [address], [place], [address], 05/11/2024 09:36:51 PT/IN R 2023 [facility], [address], [place], [address], 05/11/2024 09:25:05 afp (alph a-fet oprot ein) tumor marke r, serum or plasm a 2023 [facility], [address], [place], [address], 05/20/2024 10:42:21 Referral None recor ded. Procedures None recor ded. Surgeries None recor ded. Imaging None recor ded. Medication Orders None recor ded. Patient TargetsNo targets recorded. Patient InstructionsNo instructions recorded. Reason for Referral None Reported. Results Created Date Observation Date Name Description Value Unit Range Abnormal Flag Note LastModifiedBy Organization Detail LastModifiedTime 05/04/20 24 05/14/20[address] [facility]NA PATHO LOGY path report [facility] Dep[facility] tment of Labor atory Medic ine [address] [facility] [address] [facility] [place] [address] Telep finn: , exten laure [id number] Patho logy Repor t Surgi jovana Patho logy Repor t Name: CAROL LEW Speci men #: [id number] Age: [id number] (Age: 59) Locat ion: SJSEN DO Sex: F Proce dure Date: Hospi toi #: [id number] Date Recei florencio: Date Repor angélica: 2023 Provi nicholas: PRINCE DIAS MBBS Sourc e: Gastr ic biops ies Clini jovana Histo ry: Dysph agia and chola ngiti c cirrh osis. Gross Descr iptio n: Recei florencio in forma nguyen, label ed with a patie nt label and as carissa jordyn biops ies are 3 piece s of pink- alvarez tissu e rangi ng from 0.1 to 0.3 cm. The speci men is entir denny submi tted in casse tte 1. Gross exami natio n (when appli cable ), inter preta tion, and sign out were perfo rmed at [facility], [address] [place] [address], [facility], [place] [address] . All immun ohist ochem ical and histo chemi jovana tests were devel oped by and perfo rmed at [facility] , [address] [place] [address], [facility], [place] [address] . All tests repor angélica here have not been clear ed or appro florencio by the U.S. Food and Drug Admin istra tion (FDA) . This labor atory is regul ated under CLIA as quali fied to perfo rm high- compl exity testi ng. These tests are used for clini jovana purpo ses. They shoul d not be regar ded as inves tigat ional or for resea rch. Posit miller and negat miller contr ols show appro priat e react ivity . FINAL DIAGN OSIS: Stoma ch, biops ies: -Foca lly erode d gastr ic mucos a with mild acute infla mmati on and react miller foveo lar epith elial schilling es, see comme nts. -Immu nohis toche mical stain for Helic obact er pylor i is negat miller. Diagn osis Comme nt: The histo patho logic findi ngs are nonsp ecifi c but sugge st chemi jovana type injur y as could be seen with nonst eroid al anti- infla mmato ry drugs or bile reflu x. The H AND E stain ed secti ons are revie wed by Dr. Nahun Gu in with concu rrenc e. Maritza ctron icall y Jeana [place]IREZ CA[place] [id number] 2 Not Available Al Only - [facility] [address] [facility], [place], [address], 05/14/2024 17:12:05 08/09/2008/09/2024 CBC CBC Not Available [facility] - [facility] [address] [place] [address], [id number], 08/09/2024 15:49:42 08/09/2008/09/2024 CBC WBC 12.2 K/uL 3.8-11 .2 high Not Available [facility] [address] [place] [address], [id number], 08/09/2024 15:49:42 08/09/2008/09/2024 CBC RBC 4.22 M/uL 3.92-5 .10 Not Available [facility] [address] [place] [address], [id number], 08/09/2024 15:49:42 08/09/2008/09/2024 CBC HGB 13.6 g/dL 11.8-1 5.3 Not Available [facility] [address] [place] [address], [address], 08/09/2024 15:49:42 08/09/2008/09/2024 CBC HCT 41.4 % 36.5-4 4.8 Not Available [facility] [address] [place] [address], [id number], 08/09/2024 15:49:42 08/09/2008/09/2024 CBC MCV 98.1 fL 80.0-9 9.0 Not Available [facility] [address] [place] [address], [id number], 08/09/2024 15:49:42 08/09/2008/09/2024 CBC MCH 32.2 pg 25.5-3 3.6 Not Available [facility] [address] [place] [address], [id number], 08/09/2024 15:49:42 08/09/20 24 08/09/2024 CBC MCHC 32.9 g/dL 32.0-3 6.0 Not Available [facility] [address] [place] [address], [id number], 08/09/2024 15:49:42 08/09/20 24 08/09/2024 CBC RDW-SD 53.7 fL 35.1 - 46.3 high Not Available [facility] [address] [place] [address], [id number], 08/09/2024 15:49:42 08/09/20 24 08/09/2024 CBC plt 433 K/uL 130-40 0 high Not Available [facility] [address] [place] [address], [id number], 08/09/2024 15:49:42 08/09/20 24 08/09/2024 CBC MPV 9.2 fL 9.3-12 .8 low Not Available [facility] [address] [place] [address], [id number], 08/09/2024 15:49:42 08/09/20 24 08/09/2024 PT/IN R protime panel 2 Not Available [facility] [address] [place] [address], [id number], 08/09/2024 16:02:08 08/09/20 24 08/09/2024 PT/IN R prothrombin 10.5 secon ds 9.7-12 .2 Not Available [facility] [address] [place] [address], [id number], 08/09/2024 16:02:08 08/09/2008/09/2024 PT/IN R INR 1.0 INR INTER PRETA TION 2.0-3 .0 FOR DEEP VEIN THROM BOSIS PULMO NARY EMBOL ISM ACUTE MYOCA RDIAL INFAR CTION ATRIA L FIBRI LLATI ON 3.0-4 .5 FOR MECHA NICAL HEART VALVE S Not Available [facility] [address] [place] [address], [id number], 08/09/2024 16:02:08 08/09/20 24 08/09/2024 CMP, serum or plasm a comp. met. panel Not Available [facility] [address] [place] [address], [id number], 08/09/2024 16:35:49 08/09/20 24 08/09/2024 CMP, serum or plasm a sodium 139 mmol/ L 136-14 6 Not Available [facility] [address] [place] [address], [id number], 08/09/2024 16:35:49 08/09/20 24 08/09/2024 CMP, serum or plasm a potassium 4.1 mmol/ L 3.5-5. 1 Not Available [facility] [address] [place] [address], [id number], 08/09/2024 16:35:49 08/09/20 24 08/09/2024 CMP, serum or plasm a chloride 108 mmol/ L 98-110 Not Available [facility] [address] [place] [address], [id number], 08/09/2024 16:35:49 08/09/20 24 08/09/2024 CMP, serum or plasm a CO2 27 mEq/L 20-32 Not Available [facility] [address] [place] [address], [id number], 08/09/2024 16:35:49 08/09/20 24 08/09/2024 CMP, serum or plasm a anion gap 8 mmol/ L 10-22 low Not Available [facility] [address] [place] [address], [id number], 08/09/2024 16:35:49 08/09/20 24 08/09/2024 CMP, serum or plasm a glucose 96 mg/dL 70-100 Not Available [facility] [address] [place] [address], [id number], 08/09/2024 16:35:49 08/09/20 24 08/09/2024 CMP, serum or plasm a calcium 9.5 mg/dL 8.4-10 .4 Not Available [facility] [address] [place] [address], [id number], 08/09/2024 16:35:49 08/09/20 24 08/09/2024 CMP, serum or plasm a total protein 6.8 g/dL 6.4-8. 3 Not Available [facility] [address] [place] [address], [id number], 08/09/2024 16:35:49 08/09/20 24 08/09/2024 CMP, serum or plasm a albumin 4.3 g/dL 3.5-5. 3 Not Available [facility] [address] [place] [address], [id number], 08/09/2024 16:35:49 08/09/20 24 08/09/2024 CMP, serum or plasm a ALP 83 U/L 44 - 127 Not Available [facility] [address] [place] [address], [id number], 08/09/2024 16:35:49 08/09/20 24 08/09/2024 CMP, serum or plasm a AST (SGOT) 14 U/L 10-40 Not Available [facility] [address] [place] [address], [id number], 08/09/2024 16:35:49 08/09/20 24 08/09/2024 CMP, serum or plasm a total bilirubin 0.3 mg/dL 0.2-1. 0 Not Available [facility] [address] [place] [address], [id number], 08/09/2024 16:35:49 08/09/20 24 08/09/2024 CMP, serum or plasm a ALT (SGPT) 12 U/L 8-35 Not Available [facility] [address] [place] [address], [id number], 08/09/2024 16:35:49 08/09/20 24 08/09/2024 CMP, serum or plasm a BUN 12 mg/dL 7-21 Not Available [facility] [address] [place] [address], [id number], 08/09/2024 16:35:49 08/09/20 24 08/09/2024 CMP, serum or plasm a creatinine 1.0 mg/dL 0.7-1. 3 Not Available [facility] [address] [place] [address], [id number], 08/09/2024 16:35:49 08/09/20 24 08/09/2024 CMP, serum or plasm a GFR(non-afri can uruguayan) 60 Not Available [facility] [address] [place] [address], [id number], 08/09/2024 16:35:49 08/09/20 24 08/09/2024 CMP, serum or plasm a GFR() 73 (CASE PACKER AND SEALER SOL KIDNE Y DISEA SE HAS A GFR LESS THAN 60 ML/AZ N/1.7 3 MM FOR A PERIO D OF THREE MONTH S OR MORE. ) Not Available [facility] [address] [place] [address], [id number], 08/09/2024 16:35:49 12/12/19 25 12/11/2024 vitam in D2, 25-hy droxy , serum vitamin D, 25-hydroxy, total, serum 56 30-100 Not Available [facility] [address] [place] [address], [id number], 12/26/2024 12:13:07 12/12/19 25 12/11/2024 vitam in D2, 25-hy droxy , serum vitamin D3, 25-hydroxy, serum 19 Not Available [facility] [address] [place] [address], [id number], 12/26/2024 12:13:07 12/12/19 25 12/11/2024 vitam in D2, 25-hy droxy , serum vitamin D2, 25-hydroxy, serum 37 Not Available Replaced by [facility] [address] [place] [address], [id number], 12/26/2024 12:13:07 12/12/19 25 12/11/2024 vitam in D3, 25-hy droxy , serum vitamin D, 25-hydroxy, total, serum 56 30-100 Not Available [facility] [address] [place] [address], [id number], 12/26/2024 12:13:07 12/12/19 25 12/11/2024 vitam in D3, 25-hy droxy , serum vitamin D3, 25-hydroxy, serum 19 Not Available Replaced by [facility] [address] [place] [address], [id number], 12/26/2024 12:13:07 12/12/19 25 12/11/2024 vitam in D3, 25-hy droxy , serum vitamin D2, 25-hydroxy, serum 37 Not Available [facility] [address] [place] [address], [id number], 12/26/2024 12:13:07 12/12/19 25 12/11/2024 vitam in D, 25-hy droxy , total , serum vitamin D, 25-hydroxy, total, serum 56 30-100 Not Available [facility] [address] [place] [address], [address], 12/26/2024 12:09:55 12/12/19 25 12/11/2024 vitam in D, 25-hy droxy , total , serum vitamin D3, 25-hydroxy, serum 19 Not Available Replaced by [facility] [address] [place] [address], [id number], 12/26/2024 12:09:55 12/12/19 25 12/11/2024 vitam in D, 25-hy droxy , total , serum vitamin D2, 25-hydroxy, serum 37 Not Available [facility] [address] [place] [address], [id number], 12/26/2024 12:09:55 12/12/19 25 12/11/2024 CMP, serum or plasm a sodium 133 137-14 5 Not Available [facility] [address] [place] [address], [address], 12/14/2024 14:10:48 12/12/19 25 12/11/2024 CMP, serum or plasm a potassium 3.5 3.4-5. 1 Not Available [facility] [address] [place] [address], [address], 12/14/2024 14:10:48 12/12/19 25 12/11/2024 CMP, serum or plasm a calcium 8.8 9.6-10 .3 Not Available [facility] [address] [place] [address], [id number], 12/14/2024 14:10:48 12/12/19 25 12/11/2024 CMP, serum or plasm a albumin 3.9 Not Available [facility] [address] [place] [address], [address], 12/14/2024 14:10:48 12/12/19 25 12/11/2024 CMP, serum or plasm a alkaline phosphatase 193 36-126 Not Available [facility] [address] [place] [address], [id number], 12/14/2024 14:10:48 12/12/19 25 12/11/2024 CMP, serum or plasm a creatinine 0.76 Not Available [facility] [address] [place] [address], [id number], 12/14/2024 14:10:48 12/20/19 25 12/19/2024 vitam in D, 25-hy droxy , total , serum vitamin D 25-hydroxy totl 81.0 NG/mL 30.0-8 0.0 high Less than 20 ng/mL Defic iency 20-29 ng/mL Insuf ficie ncy 30-80 ng/mL Optim al Great er than 80 ng/mL Possi ble toxic ity Not Available [facility] [address] [place] [address], [address], 12/19/2024 19:16:00 12/20/19 25 12/26/2024 vitam in D panel , serum or plasm a ergocalcifer ol level Not Available [facility] [address] [place] [address], [address], 12/26/2024 15:43:03 12/20/19 25 12/26/2024 vitam in D panel , serum or plasm a vitamin D, 25-oh, total 61 NG/mL Refer ence Range : All Ages: Targe t level s 30 - 100 Not Available [facility] [address] [place] [address], [address], 12/26/2024 15:43:03 12/20/19 25 12/26/2024 vitam in D panel , serum or plasm a vitamin D, 25-oh, D3 16 NG/mL This test was devel oped and its perfo rmanc e hamzah cteri stics deter mined by [employer]. It has not been clear ed or appro florencio by the Food and Drug Admin istra tion. Not Available [facility] [address] [place] [address], [id number], 12/26/2024 15:43:03 12/20/19 25 12/26/2024 vitam in D panel , serum or plasm a vitamin D, 25-oh, D2 45 NG/mL This test was devel oped and its perfo rmanc e hamzah cteri stics deter mined by [employer]. It has not been clear ed or appro florencio by the Food and Drug Admin istra tion. Not Available [facility] [address] [place] [address], [id number], 12/26/2024 15:43:03 05/11/20 24 05/11/2024 US, abdom en, limit ed No observ ation record ed. [email or web address] Not Available 2023 15:36:34 07/23/20 24 10/06/2023 imagi ng/di agnos tic resul t No observ ation record ed. [email or web address] Not Available 11:04:50 07/23/20 24 11/03/2023 imagi ng/di agnos tic resul t No observ ation record ed. [email or web address] Not Available 11:04:53 09/20/20 Bone Densi ty Repor t No observ ation record ed. [email or web address] Not Available 2023 16:25:41 10/11/19 25 10/11/2024 US, abdom en, limit ed No observ ation record ed. RY Not Available 2024 17:52:23 Result Notes None recorded. Problems Name Problem SNOMED Code Status Onset Date Resolution Date Notes Provider Name and Address Organization Details Recorded Time Primary biliary cholangitis 22311824 Active 2023 Gomez ibrahim MD [address] [place] [address], [address], [facility] 4 13:32:40 Constipation 36647414 Active 2023 Steffanysharri Young [facility] 4 12:08:59 Gastroesophage al reflux disease 375217293 Active 2023 Steffany Young [facility] 4 12:12:51 Gastric erosion 293932694 Active 2023 Ward Rajeev [facility] 4 11:32:18 Vitamin D deficiency 59706072 Active 2023 Ward Boo [facility] 5 14:37:09 Postmenopausal osteoporosis 264205874 Active 2023 Bishnu Morrow MD [address] [place], [address], [facility] 4 15:13:25 Leukocytosis 513403252 Active 2024 Chelle San null, [facility] 5 15:25:07 Night sweats 50720331 Active 2024 Bishnu Morrow MD [address] , [place], [address], [facility] 5 09:27:37 Pyrexia of unknown origin 1400950 Active 2024 Bishnu Morrow MD [address] , [place], [address], [facility] 5 09:27:46 Degenerative joint disease involving multiple joints 056338888 Active 2024 Bishnu Morrow MD [address] , [place], [address], [facility] 5 09:27:52 Cigarette smoker 52038068 Active 2024 Bishnu Morrow MD [address] , [place], [address], [facility] 5 09:27:59 Neck pain 89077925 Active 2024 Robert Lao [facility] 5 14:44:18 Chronic pain 05176365 Active 2023 Robert Lao [facility] 4 17:06:47 Chronic low back pain 979636920 Active 2023 [facility] 4 17:08:47 Multiple joint pain 83712136 Active 2023 Robert Lao [facility] 4 15:05:52 Osteoarthritis 689504940 Active 2023 [facility] 4 11:[facility]:12 Seropositive rheumatoid arthritis 400485906 Active 2023 Bishnu Morrow MD [address] [place], [address], [facility] 5 09:27:29 Fibromyalgia 537058634 Active 2023 Bishnu Morrow MD [address] , [place], [address], [facility] 4 11:49:45 Secondary hyperparathyro idi 73982524 Active 2023 Nerissa Leann [place] null, [facility] 4 13:08:06 Problem Notes None recorded. Procedures Surgical History Date Name Laterality Status Provider Name and Address Organization Details Recorded Time Appendectomy completed Not Available Health Note 03/15/2024 17:26:19 Colonoscopy with biopsy completed Not Available Health Note 03/15/2024 17:26:19 Removal of gallbladder completed Not Available Health Note 03/15/2024 17:26:19 Total hysterectomy completed Not Available Health Note 03/15/2024 17:26:19 Create eardrum opening completed Not Available Health Note 03/15/2024 17:26:19 Imaging Results Imaging Date Name Status LastModified by Organiz ation Details LastModified Time 05/11/2024 US, abdomen, limited completed RY Information not available 05/14/2024 15:36:34 10/06/2023 imaging/diag nostic result completed Information not available 07/23/2024 11:04:50 11/03/2023 imaging/diag nostic result completed Information not available 07/23/2024 11:04:53 09/20/2024 Bone Density Report completed Information not available 09/21/2024 16:25:41 10/11/2024 US, abdomen, limited completed RY Information not available 10/18/2024 17:52:23 Procedure Notes None recorded. Medical Equipment None Reported. Allergies Allergen ID Allergen Name Allergen Category Reaction Reaction Severity Criticality Documentation Date Start Date Code Code System Note Provider Name and Address Organization Details Recorded Time 516502 Substance with sulfonami de structure and antibacte rial mechanism of action (substanc e) medicatio n rash Not available Not available 10/24/20232021 76078 8003 SNOMED React ion: Hives ; Rash; Itchi ng; Not Available Not Available Not Available 238223 prednison e medicatio n Not available Not available Not available 10/24/20232011 8640 RxNorm Comme nt: Annot ation s: Healt h Note, ADPVe ndor 2022 7:40A M HN - Patie nt indic ates that Predn iSONE TABS is no longe r accur ate.; ; Not Available Not Available Not Available 579763 Demerol medicatio n Not available Not available Not available 10/24/20232011 07420 1 RxNorm Comme nt: Annot ation s: Healt h Note, ADPVe ndor 2022 7:40A M HN - Patie nt indic ates that Demer ol TABS is no longe r accur ate.; ; Not Available Not Available Not Available Medications Name Sig Start Date Stop Date Status Note LastModified by Organization Details LastModified Time cyclobenz aprine 10 mg tablet TAKE 1 TABLET BY MOUTH THREE TIMES DAILY NEEDED 08/09 completed Not Available Not Available Not Available nystatin 100,000 unit/mL oral suspensio n SHAKE LIQUID AND TAKE 4 TO 6 ML BY MOUTH FOUR TIMES DAILY active Not Available Not Available No t Available cefuroxim e axetil 250 mg tablet 01/03 completed Not Available Not Available Not Available tizanidin e 2 mg tablet TAKE 1 TABLET BY MOUTH THREE TIMES DAILY NEEDED 07/19 completed Not Available Not Available Not Available albuterol sulfate 2.5 mg/3 mL (0.083 %) solution for nebulizat ion INHALE 3 MLS BY NEBULIZA TION EVERY 6 (SIX) HOURS NEEDED FOR WHEEZING active Not Available Not Available No t Available trazodone 50 mg tablet TAKE 1/2 TO 1 TABLET BY MOUTH AT BEDTIME. 03/22 completed Not Available Not Available Not Available fluconazo le 150 mg tablet TAKE 1 TABLET BY MOUTH 1 TIME active Not Available Not Available No t Available hydrocodo ne 5 mg-acetam inophen 325 mg tablet TAKE 1 TABLET BY MOUTH TWICE DAILY NEEDED FOR PAIN active Not Available Not Available No t Available lisinopri l 20 mg tablet TAKE 1 TABLET BY MOUTH DAILY active Not Available Not Available No t Available ondansetr on HCl 4 mg tablet TAKE 1 TABLET BY MOUTH EVERY 8 HOURS NEEDED active Not Available Not Available No t Available prednison e 20 mg tablet TAKE 3 TABLETS BY MOUTH DAILY FOR 5 DAYS THEN TAKE 2 TABLETS BY MOUTH DAILY FOR 3 DAYS THEN TAKE 1 TABLET BY MOUTH DAILY FOR 2 DAYS 01/03 completed Not Available Not Available Not Available prednison e 5 mg tablet TAKE 4 TABLETS ONCE DAILY FOR 7 DAYS, THEN TAKE 3 TABLETS ONCE DAILY FOR 7 DAYS, THEN TAKE 2 TABLETS ONCE DAILY FOR 14 DAYS, THEN TAKE 1 TABLET DAILY FOR 14 DAYS. OFF. active Not Available Not Available No t Available olanzapin e 5 mg tablet TAKE 1 TABLET BY MOUTH EVERYDAY AT BEDTIME 03/20 completed Not Available Not Available Not Available hydroxyzi ne pamoate 50 mg capsule TAKE 1 CAPSULE BY MOUTH TWICE DAILY NEEDED 03/20 completed Not Available Not Available Not Available olanzapin e 10 mg tablet TAKE 1 TABLET BY MOUTH AT BEDTIME 03/22 completed Not Available Not Available Not Available leflunomi de 10 mg tablet TAKE 1 TABLET BY MOUTH EVERY DAY 06/01 completed stopped by patient Not Available Not Available Not Available hydroxyzi ne HCl 50 mg tablet TAKE 1 TABLET BY MOUTH EVERY 6 HOURS NEEDED. REPLACE BENADRYL 03/22 completed Not Available Not Available Not Available ciproflox acin 250 mg tablet TAKE 1 TABLET BY MOUTH TWICE DAILY 03/20 completed Not Available Not Available Not Available doxepin 10 mg capsule TAKE 1 CAPSULE BY MOUTH AT BEDTIME 03/22 completed Not Available Not Available Not Available omeprazol e 40 mg capsule,d elayed release TAKE 1 CAPSULE BY MOUTH EVERY DAY active Not Available Not Available No t Available famotidin e 20 mg tablet TAKE 1 TABLET BY MOUTH TWICE DAILY active Not Available Not Available No t Available lorazepam 0.5 mg tablet TAKE 1 TABLET BY MOUTH TWICE DAILY NEEDED SHOULD LAST ABOUT 1 MONTH active Not Available Not Available No t Available methotrex ate sodium 2.5 mg tablet TAKE 3 TABLETS BY MOUTH IN THE MORNING AND 3 TABLETS IN THE EVENING ON THE SAME DAY EVERY WEEK 03/09 completed stopped 03/09/24 due to history of liver issues Not Available Not Available Not Available phenazopy ridine 100 mg tablet TAKE 1 TABLET BY MOUTH THREE TIMES DAILY 03/22 completed Not Available Not Available Not Available benzonata te 100 mg capsule TAKE 1 CAPSULE BY MOUTH THREE TIMES DAILY EVERY 8 HOURS NEEDED FOR COUGH 01/03 completed Not Available Not Available Not Available cephalexi n 500 mg capsule TAKE 1 CAPSULE BY MOUTH THREE TIMES A DAY FOR 10 DAYS. 01/03 completed Not Available Not Available Not Available lisinopri l 10 mg tablet take 1 tablet daily active Not Available Not Available No t Available ursodiol 300 mg capsule TAKE 1 CAPSULE BY MOUTH TWICE A DAY active Not Available Not Available No t Available nicotine 21 mg/24 hr daily transderm al patch APPLY 1 PATCH DAILY FOR SIX WEEKS active Not Available Not Available No t Available mirtazapi ne 45 mg tablet TAKE 1 TABLET BY MOUTH AT BEDTIME 03/22 completed Not Available Not Available Not Available leucovori n calcium 5 mg tablet TAKE 1 TABLET BY MOUTH ONCE A WEEK THE DAY AFTER METHOTRE XATE 03/22 completed Not Available Not Available Not Available monteluka st 10 mg tablet TAKE 1 TABLET BY MOUTH EVERYDAY AT BEDTIME active Not Available Not Available No t Available olanzapin e 15 mg tablet TAKE 1 TABLET BY MOUTH AT BEDTIME 03/20 completed Not Available Not Available Not Available ergocalci ferol (vitamin D2) 1,250 mcg (50,000 unit) capsule TAKE 1 CAPSULE EVERY 2 WEEKS BY ORAL ROUTE. active Not Available Not Available No t Available azelastin e 137 mcg (0.1 %) nasal spray USE 1 TO 2 SPRAYS IN EACH NOSTRIL TWICE DAILY NEEDED FOR NASAL CONGESTI ON OR RUNNY NOSE OR ITCHY WATERY EYES OR SNEEZING active Not Available Not Available No t Available hydroxych loroquine 200 mg tablet TAKE 1 TABLET BY MOUTH EVERY DAY 08/03 completed disconti nued 08/03 due to SEs Not Available Not Available Not Available levofloxa marifer 500 mg tablet TAKE 1 TABLET BY MOUTH DAILY FOR 10 DAYS 01/03 completed Not Available Not Available Not Available albuterol sulfate HFA 90 mcg/actua tion aerosol inhaler INHALE 2 PUFFS INTO THE LUNGS EVERY 6 HOURS NEEDED FOR WHEEZE active Not Available Not Available No t Available cefdinir 300 mg capsule TAKE 1 CAPSULE BY MOUTH TWICE DAILY 01/03 completed Not Available Not Available Not Available fluticaso ne propionat e 50 mcg/actua tion nasal spray,[place] pension SHAKE LIQUID AND USE 1 SPRAY IN EACH NOSTRIL TWICE DAILY active Not Available Not Available No t Available sertralin e 50 mg tablet TAKE 1/2 TABLET BY MOUTH EVERY DAY FOR 7 DAYS THEN INCREASE TO 1 TABLET DAILY THEREAFT ER 01/03 completed Not Available Not Available Not Available amoxicill in 875 mg-potass ium clavulana te 125 mg tablet TAKE 1 TABLET BY MOUTH TWICE DAILY 01/03 completed Not Available Not Available Not Available nitrofura ntoin monohydra te/macroc rystals 100 mg capsule TAKE 1 CAPSULE BY MOUTH TWICE DAILY WITH FOOD OR MILK 03/20 completed Not Available Not Available Not Available lactulose 10 gram/15 mL oral solution TAKE 15 MLS BY MOUTH TWICE DAILY NEEDED 03/22 completed Not Available Not Available Not Available pregabali n 50 mg capsule Take 1 capsule 3 times a day by oral route. 07/19 completed Not Available Not Available Not Available pregabali n 75 mg capsule TAKE 1 CAPSULE BY MOUTH THREE TIMES DAILY 07/19 completed Not Available Not Available Not Available pregabali n 100 mg capsule TAKE 1 CAPSULE BY MOUTH THREE TIMES DAILY 01/03 completed Not Available Not Available Not Available aripipraz ole 2 mg tablet TAKE 1 TABLET BY MOUTH AT BEDTIME 03/20 completed Not Available Not Available Not Available quetiapin e 50 mg tablet TAKE 1 TABLET BY MOUTH AT BEDTIME DIRECTED 03/22 completed Not Available Not Available Not Available Enbrel SureClick 50 mg/mL (1 mL) subcutane ous pen injector Inject 1 mL every week by subcutan eous route. 01/03 completed never started due to illness Not Available Not Available Not Available Symbicort 160 mcg-4.5 mcg/actua tion HFA aerosol inhaler INHALE 2 PUFFS INTO THE LUNGS TWICE A DAY active Not Available Not Available No t Available Reclast 5 mg/100 mL intraveno us piggyback infuse 5 mg via iv once yearly active Not Available Not Available No t Available cholecalc iferol (vitamin D3) 1,250 mcg (50,000 unit) capsule TAKE 1 CAPSULE BY MOUTH ONCE MONTHLY active Not Available Not Available No t Available FeroSul 325 mg (65 mg iron) tablet TAKE 1 TABLET BY MOUTH EVERY OTHER DAY 06/01 completed patient stopped Not Available Not Available Not Available chlorzoxa zone 375 mg tablet TAKE 1 TABLET BY MOUTH THREE TIMES DAILY NEEDED 03/22 completed Not Available Not Available Not Available Linzess 145 mcg capsule TAKE 1 CAPSULE BY MOUTH EVERY DAY active Not Available Not Available No t Available Incruse Ellipta 62.5 mcg/actua tion powder for inhalatio n INHALE 1 PUFF INTO THE LUNGS DAILY active Not Available Not Available No t Available Linzess 72 mcg capsule TAKE 1 CAPSULE BY MOUTH DAILY 03/22 completed Not Available Not Available Not Available Vitals Date Recorded Body height Body mass index (BMI) Body weight Heart rate Oxygen saturation Oxygen saturation in Arterial blood by Pulse oximetry Systolic blood pressure Diastolic blood pressure Provider Name and Address Organization Details Last Updated DateTime 4 154.94 cm 17.8 kg/m2 76399.4 g 91 /min 99 % 99 % 108 mm[Hg] 64 mm[Hg] Char Rico [facility] 4 12:38:19 Date Recorded Body height Body mass index (BMI) Body weight Heart rate Oxygen saturation Oxygen saturation in Arterial blood by Pulse oximetry Pain severity - 0-10 verbal numeric rating [Score] - Reported Systolic blood pressure Diastolic blood pressure Provider Name and Address Organization Details Last Updated DateTime 4 154.94 cm 19.6 kg/m2 76589.2 5 g 99 /min 97 % 97 % 5 116 mm[Hg] 66 mm[Hg] Diya Rosas [facility] 4 14:49:20 Date Recorded Body height Body mass index (BMI) Body weight Heart rate Oxygen saturation Oxygen saturation in Arterial blood by Pulse oximetry Systolic blood pressure Diastolic blood pressure Provider Name and Address Organization Details Last Updated DateTime 4 154.94 cm 19.3 kg/m2 09324.4 2 g 95 /min 95 % 95 % 104 mm[Hg] 60 mm[Hg] Sydnee woodard [facility] 4 12:11:37 Date Recorded Body height Body mass index (BMI) Body weight Heart rate Respiratory rate Oxygen saturation Oxygen saturation in Arterial blood by Pulse oximetry Systolic blood pressure Diastolic blood pressure Provider Name and Address Organization Details Last Updated DateTime 5 154.94 cm 20.3 kg/m2 42373.5 4 g 108 /min 20 /min 98 % 98 % 148 mm[Hg] 82 mm[Hg] Sapna Avilaliardi [facility] 5 12:30:24 Date Recorded Body height Heart rate Oxygen saturation Oxygen saturation in Arterial blood by Pulse oximetry Systolic blood pressure Diastolic blood pressure Provider Name and Address Organization Details Last Updated DateTime 5 154.94 cm 112 /min 96 % 96 % 146 mm[Hg] 84 mm[Hg] Robert Lao [facility] 5 09:29:37 Social History Question Answer Notes LastModified by Karisma Kidzizat ion Details LastModified Time Tobacco Smoking Status Current Every Day Smoker Diya Rosas [facility] 07/19/2024 14:50:50 Do You Have An Advance Directive? No [email or web address] Information not available 03/15/2024 What Is Your Level Of Alcohol Consumption? None [email or web address] Information not available 03/15/2024 What Is Your Level Of Caffeine Consumption? Occasional [email or web address] Information not available 03/15/2024 Are You Currently Employed? No [email or web address] Information not available 03/15/2024 What Is Your Occupation? None [email or web address] Information not available 03/15/2024 How Many Times Per Week Do You Exercise? 1-2 Times Per Week [email or web address] Information not available 03/15/2024 How Many Packs Per Day (PPD)? 1/2 Pack Per Day [email or web address] Information not available 03/15/2024 How Long Have You Smoked? 51 Years [email or web address] Information not available 03/15/2024 Do You Have A Medical Power Of [place]? No [email or web address] Information not available 03/15/2024 What Was The Date Of Your Most Recent Tobacco Screening? 03/22/2024 [email or web address] Information not available 03/15/2024 What Is Your Relationship Status? [email or web address] Information not available 03/15/2024 Do You Use Any Illicit Or Recreational Drugs? No [email or web address] Information not available 03/15/2024 Sex: Unknown Functional Status Question Answer Note LastModified by Organizat ion Details LastModified Time What is your exercise level? Occasional [email or web address] Information not available 03/15/2024 Mental Status None recorded. Family History Relationship Description Onset Age of this Age Resolved Age Notes LastModified by Organization Details LastModified Time Mother Arthritis [email or web address] Not available 03/15/2024 17:26:18 Mother Family history of malignant neoplasm [email or web address] Not available 2023 17:26:18 Mother Chronic obstructive pulmonary disease [email or web address] Not available 2023 17:26:18 Brother Arthritis [email or web address] Not availabl e 03/15/2024 17:26:18 Brother Family history of malignant neoplasm [email or web address] Not available 2023 17:26:18 Brother Chronic obstructive pulmonary disease [email or web address] Not available 2023 17:26:18 Brother Hypertensive disorder [email or web address] Not available 2023 17:26:18 Brother Hypercholest erolemia [email or web address] Not available 2023 17:26:18 Father Family history of malignant neoplasm [email or web address] Not available 2023 17:26:18 Father Heart disease [email or web address] Not available 2023 17:26:18 Father Hypertensive disorder [email or web address] Not available 2023 17:26:18 Father Hypercholest erolemia [email or web address] Not available 2023 17:26:18 Maternal Grandfather Kidney disease [email or web address] Not available 2023 17:26:18 Medical History Condition Response Anxiety Disorder Y Diabetes N Bleeding Disorder N Attention-deficit Hyperactivity Disorder N High Blood Pressure Y Arthritis Y Hyperlipidemia N Cancer N Thyroid Problems N Stroke N COPD Y Depression Y Asthma N Seizures Y Anemia Y Heart Disease N Fibromyalgia N Osteoporosis N Kidney Disease N Gynecological HistoryNo gynecological history recorded. Obstetrics History GPAL:G 0 P 0 0 0 0 Past Encounters Encounter ID Performer Location Encounter Start Date Encounter Closed Date Diagnosis/Indication Diagnosis SNOMED-CT Code Diagnosis ICD10 Code Diagnosis Note [id number] Bishnu Morrow MD [facility] ([place]) [address] [place] [address] 03/22/2024 12:07:12 03/25/2024 13:48:46 Osteoarthritis 348732537 M19.90 Chronic low back pain 27 1557099 M54.50 Fibromyalgia 909210196 M 79.7 Seropositi ve rheumatoid arthritis of multiple joints 6588930361 3782290 M05.89 [id number] Gomez dias MD [address] [facility] ([place]) [address] [place] [address] 05/01/2024 12:24:34 05/01/2024 17:14:29 Primary biliary cholangitis 08258789 K74.3 [id number] Bishnu Morrow MD [facility] ([place]) [address] [place], [place] [address] [address] 07/19/2024 14:23:48 07/24/2024 10:34:31 Seropositive rheumatoid arthritis 921908173 M05.9 Vitamin D deficiency 347 44906 E55.9 Osteoarthritis 928640616 M19.90 Postmenopa usal osteoporosis 231955795 M81.0 [id number] Gomez dias MD [address] [facility] ([place]) [facility] [address] [place] [address] 08/09/2024 12:03:41 08/09/2024 14:08:53 Primary biliary cholangitis 92546377 K74.3 [id number] Amauri Scott MD [facility] ([place]) [address] [place] [address] 12/19/2024 12:23:22 12/19/2024 14:40:10 Postmenopausal osteoporosis 360768581 M81.0 Vitamin D deficiency 347 56552 E55.9 Secondary hyperparathyroidism 20122472 E21.1 [id number] Bishnu Morrow MD [facility] ([place]) [address] [place] [address] 01/03/2025 09:05:25 01/07/2025 15:53:03 Seropositive rheumatoid arthritis 074403016 M05.9 Night sweats 96774847 R6 1 Pyrexia of unknown origin 1583668 R50.9 Degenerati ve joint disease involving multiple joints 158989197 M15.9 Cigarette smoker 5908006 7 F17.210 Health Concerns Section Related Observation LastModified by Organization Detai ls LastModified Time None Recorded Concern Status LastModified by Organization Details LastModified Time None Recorded Advance Directives Directive N: Payers Encounter Date Sequence Insurance Name Policy Number Policy Ramirez Covered Member ID Ramirez Member ID Guarantor Name 05/01/2024 1 [employer] (MEDICAID HMO) [id number] Sheela Wang [id number] Sheela Wang 07/19/2024 1 [facility] [id number] Sheela Wang [id number] Sheela Wang 08/09/2024 1 [employer] (MEDICAID HMO) [id number] 0003 Sheela Goyal Felipe [id number] Sheela Wang 12/19/2024 1 [employer] (MEDICAID HMO) [id number] 0003 Sheela Wang [id number] Sheela Wang 01/03/2025 1 [employer] (MEDICAID HMO) [id number] 0003 Sheela Wang [id number] Sheela Wang Notes Date Note Type Note Provider Name and Address Organization Details Recorded Time 4 text/html Ms. Wang is a 59-year-old female with history significant for COPD, tobacco abuse, hypertension, underlying anxiety and depression, constipation presents to the office today for a follow-up of primary biliary cholangitis. Patient also has underlying rheumatoid arthritis, osteoarthritis fibromyalgia. She is currently being actively managed by rheumatology. She ran out of her medicines and was unable to get refill of her ursodiol. This was eventually filled by her primary care physician. She also complains of dysphagia. This is mainly to solids. She has been taking NSAIDs on regular basis mainly for her back pain and arthritis. She denies any melena or hematochezia.Her last CMP was performed in December 2023. She was noted to have a alkaline phosphatase of 104. Liver enzymes are within normal limits. Gomez Elmore MD [address], [address], [facility] 05/05/2024 14:21:35 4 text/html The patient is a 59-year-old female with seropositive RA, osteoarthritis, fibromyalgia syndrome, osteoporosis and chronic mechanical back pain, who is here for a followup visit today. She is not currently taking her Enbrel and is off her prednisone. Essentially she is not taking any immunosuppressive therapy. She reports today a flare of swelling in her 2nd MCP joint in the right hand. Currently she is encountering stiffness in both her hands, knees, ankles and feet lasting up to an hour in duration. She rates her pain level a 5/10 on a scale. Since last visit, she suffered a bout of COVID-19 infection and has been experiencing persistent loss of her smell and taste for the past 2 months since then. She was treated with a course of prednisone and antibiotics for a secondary pneumonia by Dr. Burden. The patient, unfortunately, continues smoking a half pack per day of cigarettes. She denies at this time any fever or chills. No skin rash, aphthous ulcers, epistaxis. No hemoptysis, chest pain or palpitations, GERD, melena or hematochezia, diarrhea or constipation. She has had no dysuria or gross hematuria or bleeding from the nares or gums. As regard to her bone health, she does have osteoporosis. She has received 2 doses of Reclast. Her bone density in October of this year demonstrated an AP spine T-score of -4.3, with a total hip T-score of -3.3 with a femoral neck score of -3.4. However, these represented a 16.4% improvement in the spine and 3% improvement in the hip. The patient has not suffered any falls or fractures since last visit.koki Wangis a 59 year oldfemalepresenting for care. Bishnu Morrow MD [address] [facility], [place], [address], [facility] 07/23/2024 09:09:52 4 text/html Ms. Wang is a 59-year-old female with history significant for primary biliary cholangitis comes in today for a follow-up. She also has rheumatoid arthritis and is currently being evaluated for biologic therapy by rheumatology. She complains of epigastric discomfort and heartburn. She had relief of the symptoms with PPI therapy. The PPI therapy was discontinued after 8 weeks of treatment. Patient's had recurrence of the symptoms. She had an endoscopy in April 2024 which did show gastric erosions. Patient denies any melena or hematochezia. She continues to smoke about 1-1/2 packs a day. Denies any constipation. Linzess appears to be keeping her regular. Gomez Elmore MD [address] [place] [address], [address], [place] [facility] 08/09/2024 13:47:19 5 text/html Felipe comes in for continued follow-up on prior history of hyperparathyroidism. She also has osteoporosis. History of hyperparathyroidism and had right superior parathyroid resection June 2021 followed by hypocalcemia. Was placed on Ca, Mg, vitamin D and calcitriol November 2021 came in with hypercalcemia, low PTH level, upper normal 25 vitamin D level and increased creatinine with ASHLY but had slight elevation of creatinine 4 weeks prior to admission when she had normal calcium level. Baseline creatinine 0.May calcium levels decreased then re-increased and eventually normalized after stopping above meds and receiving Miacalcin 2 doses. Repeat Ca leve after discharge gradually decreased and on December 28 Ca was 8.2. Repeat the same day in the evening was 8.4 (8.4-10.5) with a PTH of 71.2 (18.2-80.1), phosphorus 2.8 (2.6-4.5). I resumed Ca intake. She is taking tums 2 in the evenings. We have repeated her labs several times since she was last seen in December 2021. As well as since she was seen in July 2022. The plan was for her to have Reclast infusion however patient has canceled or postponed it several times during 2022 despite multiple efforts to get the infusion done. Eventually she received her first infusion November 2023 she had her infusion at [facility] [place] [place] Last labs are as following: December 2021 calcium 8.7, PTH 164 (12-88), phosphorus 2.1 (2.7-4.5) and we continued Caltrate at 500 mg twice dailyApr2021 calcium 8.4, albumin 3.5, corrected calcium 8.8. We had her on Caltrate 500 mg twice dailyEarly February 2022 calcium 8.7, March 21 calcium 8.4 (8.4-10.5)March 2022 calcium 8.7 (8.4-10.5), creatinine 1.08Nov2021 Calcium 8.7 (8.4-10.5), magnesium 2.0 (1.8-2.4), PTH 140.3 (18.4-80.1), TSH 2.489 (0.358-3.740) creatinine 1.00 (0.55-1.02) alkaline phosphatase 104 (46-118), AST 12 (15-37), ALT 23 (14-59)August 05, 2022 25 vitamin D is 25.8.However in Jul 2022 she told me that she has not been taking Caltrate or tums and has been off these for several months.Not taking vitamin DIs taking Magnesium prescribed by PCP We resumed ergocalciferol 50,000 units weekly, Caltrate 500 mg daily in late Julyecemb2021 calcium 9.5 and ergocalciferol level 73We continued with ergocalciferol 50,000 units weekly January 2023 ergocalciferol 93 and we decreased ergocalciferol intake to 50,000 units once every 2 weeks April 2023 vitamin D was 61.5. We are assuming that this was 25 vitamin D. During her hospital stay work-up for hypercalcemia was all negative except that fractionated alkaline phosphatase isoenzymes was positive for macro hepatic isoenzymes. Actually liver isoenzymes percentage was normal, bone isoenzymes were slightly low. Intestine isoenzymes were normal. Lab evaluation included the following: December 15, 2021 1, 25 dihydroxy vitamin D 20 (18-72) December 14, 2021 Vitamin A 40 (38-98) PTH RP 10 (11-20 Magnesium 1.2 (1.6-2.6) Phosphorus 2.7 (2.5-4.9) Ionized calcium 1.35 (1.15-1.33) Alkaline phosphatase isoenzymes: 222 (37-153) Liver isoenzymes 54% (25-69%) Bone isoenzyme 19 (28-66%) Intestinal isoenzyme 4% (1-24) Macro hepatic isoenzymes 23% (<0%) December 13 Alkaline phosphatase isoenzymes: 209 (37-153) Liver isoenzymes 53% (25-69%) Bone isoenzyme 21 (28-66%) Intestinal isoenzyme 4% (1-24) Macro hepatic isoenzymes 22% (<0%) December 12 Immunoglobulins: IgA 228.0 (70.0-400.0) IgG 681.0 (700.0-1600) IgM 497.0 (40.0-230.0) Protein electrophoresis: Total serum protein was normal and electrophoresis identifies decreased albumin with no additional quantitative abnormalities. Monoclonal proteins are not detected. Magnesium 2.2 (1.6-2.6) TSH 3.470 25 vitamin D 83.2 (this is borderline elevated) 1, 25 dihydroxy vitamin D 41 (18-72) PTH 13.7 (18.4-80.1) Ionized calcium 1.68 (1.15-1.33) Phosphorus 4.1 (2.5-4.9) She has seen both oncology as well as gastroenterology in consultation In summary oncology: IgM level appears to be the polyclonal and reactive, likely related to underlying autoimmune diseases. Gastroenterology primary biliary cholangitis and eventually had normalization of alkaline phosphatase and liver enzymes.January 2023 25 vitamin D 93 (D3 16, D2 77)September 2023 25 vitamin D 79 (D3 8.9, D2 70)In 2022/2023 Calcium levels as well as ergocalciferol level normalized with the intake of ergocalciferol 50,000 units every other week.Repeat BMD October 2023 compared to one from June 2021 revealed osteoporosis based on all of her T-scores that were all less than -2.59PCP did a bonus evaluation of [facility] in August 2024T-scores: Spine: -4.1, left femoral neck: -3.4, right femoral neck: -2.9. I do not see results for the total hip area. I do see a calculated FRAX risk (this should not have been calculated because patient has osteoporosis on her bone density and has received treatment)Eventually and after several attempts we were able to infuse ReclastWe were not able to do it as before clinic due to her insuranceEventually in November 2023 this was done at [facility].After the infusion we continued ergocalciferol at 50,000 units every other weekJan2024 25 vitamin D 25.1. Rheumatology suggested giving her cholecalciferol 50,000 units weekly. Patient contacted us and I suggested to continue ergocalciferol at 50,000 units every other week with a plan to repeat an ergocalciferol levelMarch 2024 calcium 8.8, albumin 3.9, alkaline phosphatase 193, creatinine 0.76. No ergocalciferol level was done.Patient will do ergocalciferol level today EXAM: GENERAL: This is a well-developed, well-nourished lady in no acute distress. Alert and oriented to time, place, and person and is cooperative and in a good mood. CARDIOVASCULAR: Normal S1, S2. No murmurs, rubs, or gallops appreciated. Regular rate and rhythm. PULMONARY: Nonlabored breathing. Clear to auscultation bilaterally with equal bilateral breath sounds. SKIN: No rashes or lesions. NEUROLOGIC: Cranial nerves 2-12 are grossly intact. Moves extremities without any weakness. No tremors. Amauri Scott MD [facility] [address], [id number], [facility] 12/19/2024 18:07:25 5 text/html The patient is a 59-year-old postmenopausal white female with a history of seropositive RA, fibromyalgia syndrome, osteoarthritis, and osteoporosis, who is here for a followup visit. She was supposed to start Enbrel therapy, but has been unable to do so because of recurrent upper respiratory infections. She reports that essentially for the past year she has had intermittent low grade fevers to 101.3 degrees Fahrenheit associated with night sweats. Her weight has fluctuated. She has had periods of overall weight loss. Her appetite varies from day to day. She unfortunately is a smoker of 1 pack per day of cigarettes. She denies any aphthous ulcers. No epistaxis or hemoptysis, chest pain or palpitations or syncopal episodes, GERD, melena or hematochezia. Currently she rates her pain in the hands, wrists, elbows and knees, as well as ankles an 8/10 on a scale with her morning stiffness lasting 3-4 hours in duration each day. She does try to keep as active as possible on her feet. She does not utilize an assistive device for ambulation. She has taken 2 doses of Reclast and is due this year for her third dose. She denies any falls or fractures. She has had no renal calculi, gross hematuria, bleeding from the nares or gums. No post Reclast infusion reactions. She has had no major dental issues. She visits the dentist sporadically. 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
--- OUTSIDE RECORDS SUMMARY | 2025-01-14 08:10 | XMS_ITS | Continuity of Care Document ---
Author Organization [facility] Address [address] [place] [address] utive [facility] [address] [place] [address] Phone Care Team Providers Care Card Dealer Name Role Phone Plascencia OD, Beau Unavailable Unavailable Procedures Procedure Date Eye Exam, New Patient Refraction Advance Directives Directive Yes / No Effective Date File Name No Information Encounters Encounter Description Practice Location Reason(s) For Visit Diagnoses Date Provider Providers Copied on Encounter [facility], [address] [place] [address] [address], [place], [place], [id number], [place] tel:[phone] [facility] No Information [phone] 0 Plascencia OD Beau. [address] , [address], [place], [address], [place]. tel:[phone] Family History Family Member Type Diagnosis Age At Onset No Information Payers Payer name Insurance type Covered constitution party ID Authoriza tion(s) Medicaid [facility] [id number] Social History Type Description Quantity Date Captured Comments Sex Female Smoking Status No Information Chief Complaint And Reason For Visit No Information Reason For Referral Reason For Referral No Information History Of Present Illness Encounter Date Complaint History Of Prese nt Illness No Information Functional Status Date Functional Assessmen t No Information Instructions Date Instruction Additional Infor mation No Information Assessments Type Assessment Date No Information Patient Care Teams Name Effective Dates (start - stop) Status Members No Information
--- OUTSIDE RECORDS SUMMARY | 2025-01-14 08:10 | XMS_ITS | CONTINUITY OF CARE DOCUMENT ---
Author Name franklin reid Address Unknown Organization [facility] Address [address] [place] [address] [address] [place] [address] Phone [phone] Care Team Providers Care Area Field Worker Name Role Phone franklin reid Unavailable Unavailable
--- NOTE | 2025-01-14 13:14 | WPDCARIOSTRE ---
Nuclear Stress Test INDICATIONS Indications: Chest pain PROCEDURE Procedure Performed: Myocardial Perf Spect-Multi Procedure: Patient underwent a lexiscan stress test and was immediately injected with 32.4 mCi of cardiolyte. Multiple tomographic images were obtained. These are of good quality. There is no evidence of perfusion defects with stress imaging. A separate resting images were obtained after patient was injected with 10.5 mCi of cardiolyte. Multiple tomographic images were obtained. These are of good quality. There is no evidence of perfusion defects with rest imaging. CONCLUSION Conclusion: 1. Normal myocardial perfusion imaging demonstrating no perfusion defects with stress or rest imaging. 2. No reversible ischemia. 3. Left ventriculogram demonstrates normal measured hyperdynamic systolic function with ejection fraction of 85% with no wall motion abnormalities. 4. TID score 0.83 is not elevated.
== END 2025-01-14 07:50 | disposition home or self-care (01) ==
LOC: CHSCARD 07:53
PROVIDERS: PCP Family Medicine; Visit Provider Internal Medicine Cardiovascular Disease
DX: R06.02 Shortness of breath (principal); R61 Generalized hyperhidrosis; I10 Essential (primary) hypertension; R00.0 Tachycardia, unspecified; F17.200 Nicotine dependence, unspecified, uncomplicated
CPT/HCPCS: 78452; 93017; A9502; J2785